=== PATIENT | male | born 1985 | race Caucasian/White ===

== ENCOUNTER 2016-10-29 16:03 | Emergency (ER) | payer SELFPAY ==
[~2016-10-29] VITALS: Ht 172.7 cm; Wt 79.4 kg
--- NOTE | 2016-10-29 16:29 | PHYS DOC ---
Adult General Chief Complaint Chief Complaint: LOWER BACK PAIN OR INJURY HPI HPI Patient is a 30 year old occasional male who presents with a fall from 4 feet landing on his back. He states it happened approximately 90 minutes ago. He jumped up immediately and denied any weakness in his legs. He does complain of low thoracic high lumbar pain and suprapubic discomfort. He denies any neck pain or leg. He denies numbness or tingling in his legs. He states he is able to walk but has pain when he does so. He denies any chest pain or shortness of breath. Patient also complains of a soreness left forearm from injecting meth 3 days ago.He states today he put a needle into it and drained off some pus. He is unsure when his last tetanus shot was. He denies any fevers chills nausea or vomiting. He states this is been there for quite some time. He denies any numbness in his arm or fingers. Review of Systems Review of Systems Constitutional: Denies fever or chills [] Eyes: Denies change in visual acuity, redness, or eye pain [] HENT: Denies nasal congestion or sore throat [] Respiratory: Denies cough or shortness of breath [] Cardiovascular: No additional information not addressed in HPI [] GI: Denies abdominal pain, nausea, vomiting, bloody stools or diarrhea [] : Denies dysuria or hematuria [] Musculoskeletal: Positive for back pain Integument: Denies rash or skin lesions [] Neurologic: Denies headache, focal weakness or sensory changes [] Endocrine: Denies polyuria or polydipsia [] Current Medications Current Medications Current Medications Medications (Trade) Dose Ordered Sig/Han Start Time Stop Time Status Last Admin Dose Admin Diphtheria/ Tetanus/Acell Pertussis (Boostrix) 0.5 ml ONCE ONCE 10/29/16 18:00 10/29/16 18:01 DC 10/29/16 18:41 0.5 ML Fentanyl Citrate (Fentanyl 2ml Vial) 50 mcg PRN Q15MIN PRN 10/29/16 16:45 10/30/16 16:44 10/29/16 17:21 50 MCG Info (Do NOT chart on this entry -- for MONITORING) 1 each PRN DAILY PRN 10/29/16 17:45 10/31/16 17:44 Iohexol (Omnipaque 300 Mg/ml) 75 ml 1X ONCE 10/29/16 18:00 10/29/16 18:01 DC 10/29/16 17:41 75 ML Lidocaine/Sodium Bicarbonate (Buffered Lidocaine 1%) 20 ml 1X ONCE 10/29/16 17:45 10/29/16 17:46 DC 10/29/16 17:56 20 ML Ondansetron HCl (Zofran) 4 mg 1X ONCE 10/29/16 16:45 10/29/16 17:16 DC 10/29/16 17:20 4 MG Allergies Allergies Allergies Coded Allergies Type Severity Reaction Last Updated Verified No Known Drug Allergies 10/29/16 No Physical Exam Physical Exam Constitutional: Well developed, well nourished, no acute distress, non-toxic appearance. [] HENT: Normocephalic, atraumatic, bilateral external ears normal, oropharynx moist, no oral exudates, nose normal. [] Eyes: PERRLA, EOMI, conjunctiva normal, no discharge. [] Neck: Normal range of motion, no tenderness, supple, no stridor. [] Cardiovascular:Heart rate regular rhythm, no murmur [] Lungs & Thorax: Bilateral breath sounds clear to auscultation [] Abdomen: Bowel sounds normal, soft, tender palpation in the suprapubic area without any rebound or guarding, no masses, no pulsatile masses. [] Skin: Warm, dry, no erythema, 1 x 1 cm nodule in the left forearm without any erythema Back: Tender palpation from T 10 through L3, no obvious deformity or ecchymosis no step-offs, nontender the rest of the spine and extremities no CVA tenderness. [] Extremities: No tenderness, no cyanosis, no clubbing, ROM intact, no edema. [] Neurologic: Alert and oriented X 3, normal motor function, normal sensory function, no focal deficits noted. [] Psychologic: Affect normal, judgement normal, mood normal. [] Current Patient Data Vital Signs Vital Signs Date Time Temp Pulse Resp B/P (MAP) Pulse Ox O2 Delivery O2 Flow Rate FiO2 10/29/16 18:54 98 18 152/85 (107) 98 Room Air 10/29/16 16:41 98.5 98.5 Lab Values Laboratory Tests Test 10/29/16 17:00 10/29/16 17:40 White Blood Count 10.8 x10^3/uL (4.0-11.0) Red Blood Count 4.89 x10^6/uL (4.30-5.70) Hemoglobin 14.5 g/dL (13.0-17.5) Hematocrit 42.5 % (39.0-53.0) Mean Corpuscular Volume 87 fL (79-100) Mean Corpuscular Hemoglobin 30 pg (25-35) Mean Corpuscular Hemoglobin Concent 34 g/dL (31-37) Red Cell Distribution Width 13.1 % (11.5-14.5) Platelet Count 239 x10^3/uL (140-400) Neutrophils (%) (Auto) 75 % (31-73) H Lymphocytes (%) (Auto) 17 % (24-48) L Monocytes (%) (Auto) 6 % (0-9) Eosinophils (%) (Auto) 1 % (0-3) Basophils (%) (Auto) 1 % (0-3) Neutrophils # (Auto) 8.1 x10^3uL (1.8-7.7) H Lymphocytes # (Auto) 1.8 x10^3/uL (1.0-4.8) Monocytes # (Auto) 0.7 x10^3/uL (0.0-1.1) Eosinophils # (Auto) 0.1 x10^3/uL (0.0-0.7) Basophils # (Auto) 0.1 x10^3/uL (0.0-0.2) Prothrombin Time 12.7 SEC (11.7-14.0) Prothrombin Time INR 1.0 (0.8-1.1) PTT 26 SEC (24-38) Sodium Level 139 mmol/L (136-145) Potassium Level 4.4 mmol/L (3.5-5.1) Chloride Level 101 mmol/L (98-107) Carbon Dioxide Level 31 mmol/L (21-32) Anion Gap 7 (6-14) Blood Urea Nitrogen 11 mg/dL (8-26) Creatinine 0.9 mg/dL (0.7-1.3) Estimated GFR (Cockcroft-Gault) 100.5 Glucose Level 106 mg/dL (70-99) H Calcium Level 9.6 mg/dL (8.5-10.1) Total Bilirubin 0.2 mg/dL (0.2-1.0) Direct Bilirubin 0.1 mg/dL (0.0-0.2) Aspartate Amino Transferase (AST) 24 U/L (15-37) Alanine Aminotransferase (ALT) 26 U/L (16-63) Alkaline Phosphatase 128 U/L (46-116) H Creatine Kinase 297 U/L (39-308) Creatine Kinase MB (Mass) 1.9 ng/mL (0.0-3.6) Creatine Kinase MB Relative Index 0.6 % (0-4) Total Protein 8.8 g/dL (6.4-8.2) H Albumin 4.1 g/dL (3.4-5.0) Lipase 77 U/L (73-393) Urine Color Yellow Urine Clarity Clear Urine pH 6.0 Urine Specific [place] 1.025 Urine Protein 30 mg/dL (NEG-TRACE) Urine Glucose (UA) Negative mg/dL (NEG) Urine Ketones (Stick) Negative mg/dL (NEG) Urine Blood Negative (NEG) Urine Nitrite Negative (NEG) Urine Bilirubin Negative (NEG) Urine Urobilinogen Dipstick 0.2 mg/dL (0.2 mg/dL) Urine Leukocyte Esterase Negative (NEG) Urine RBC 0 /HPF (0-2) Urine WBC Occ /HPF (0-4) Urine Squamous Epithelial Cells Occ /LPF Urine Bacteria 0 /HPF (0-FEW) Urine Hyaline Casts Occasional /HPF Urine Mucus Mod /LPF Laboratory Tests 10/29/16 17:00 Laboratory Tests 10/29/16 17:00 EKG EKG [] Radiology/Procedures Radiology/Procedures [facility] [address] [place] [address] IMAGING REPORT Signed PATIENT: LAWANDA FLOR ACCOUNT: [id number] : 1985 LOCATION: ER AGE: 30 SEX: M EXAM STATUS: REG ER ORD. PHYSICIAN: ORTIZ CONSTANTINO MD REASON: trauma PROCEDURE: CT CHEST ABD PELVIS W/CONTRAST CT chest, abdomen and pelvis with contrast. CT thoracic spine without contrast. CT lumbar spine without contrast. HISTORY: Trauma, fall, back pain, abdomen pain. TECHNIQUE: Helical CT imaging of the thoracic and lumbar spine without contrast and CT imaging of the chest, abdomen and pelvis with 75 mL Omnipaque 300 intravenous contrast. Thoracic spine findings: Mild T4 compression fracture 10 percent vertebral body height loss without a lucent fracture cleft age-indeterminate. No definite acute fracture. Vertebral alignment intact. Paraspinal tissues unremarkable. Bony canal intact. IMPRESSION: Age-indeterminate mild T4 vertebral compression fracture with 10 percent height loss. Lumbar spine findings: Lumbar vertebral body height and alignment intact. No fracture. No spondylolysis. Bony spinal canal grossly patent. Disc height loss and disc bulge L5-S1. IMPRESSION: No acute osseous injury. Lower lumbar spine disc disease. Chest findings: No mediastinal hematoma. No traumatic thoracic aortic injury. Heart size is normal. Pulmonary vessels and esophagus are unremarkable. No adenopathy. No pneumothorax, pulmonary opacities or pleural effusions. Mild age-indeterminate compression fracture T4 vertebral body. Abdomen findings: Liver, gallbladder, spleen, kidneys, adrenals and pancreas are unremarkable. Vessels unremarkable. No abdominal fluid or adenopathy. GI tract the appendix demonstrates no obstruction or inflammation. Pelvis findings: No pelvic fluid. Bladder, prostate, rectum and bones are unremarkable. IMPRESSION: No acute process in the chest, abdomen and pelvis. Exposure: One or more of the following individualized dose reduction techniques were utilized for this examination: 1. Automated exposure control 2. Adjustment of the mA and/or kV according to patient size 3. Use of iterative reconstruction technique Electronically signed by: Jose Abdi MD (10/29/2016 6:33 PM) [facility] DICTATED and SIGNED BY: JOSE ABDI MD DATE: 10/29/161816 CC: ORTIZ CONSTANTINO MD; NO PCP ~ Impressions: Left forearm wound Back pain from fall Course & Med Decision Making Course & Med Decision Making Pertinent Labs and Imaging studies reviewed. (See chart for details) CT scan shows an old T 4 fracture the patient does not have pain over this area. His wound on his left forearm I did numb it and put a 16 ga needle in it did get a very small amount of pus otherwise it's a local reactive reaction this going on. There was not enough material to send off for culture. Tetanus was updated and he is being discharged home with Bactrium DS for the next 7 days. He can take Percocet and Motrin for pain. Return precautions given. He is agreeable plan being discharged in stable condition this time. [facility] Disclaimer Dragon Disclaimer This electronic medical record was generated, in whole or in part, using a voice recognition dictation system. Departure Departure Impression: Primary Impression: Back pain Disposition: 01 HOME, SELF-CARE Condition: STABLE Referrals: CHICA CHRISTENSEN MD Patient Instructions: Back Pain, Adult Additional Instructions: The CAT scan of your chest abdomen pelvis and of your lumbar and thoracic back did not show any acute abnormalities. Your being discharged home. You can take Percocet as directed for pain. Please don't drive your car while taking this medicine as it can impair judgment and make you sleepy. Can also use Advil 600 mg every 8 hours for the next 3-5 days for pain. Also need to take Bactrim 1 tablet twice a day for the next 7 days for your wound on your left arm. Return ER if you have worsening pain, numbness in your legs, weakness, you developed fevers or you have other concerns. If your wound on your arm doesn't get better over the next week you will need to follow-up with surgery. Please call their office and schedule follow-up appointment. Scripts Sulfamethoxazole/Trimethoprim (BACTRIM 400-80 MG TABLET) 1 Each Tablet 1 TAB PO BID, #14 TAB Prov: ORTIZ CONSTANTINO MD 10/29/16 Oxycodone/Apap 5-325 (PERCOCET 5-325 MG TABLET) 1 Each Tablet 1-2 TAB PO Q6HRS Y for PAIN, #15 TAB Prov: ORTIZ CONSTANTINO MD 10/29/16 Incision and Drainage Indication: abscess Procedure: The patient was positioned appropriately. Local anesthesia was 1 mL of buffered lidocaine. An incision was then made over the apex of the lesion and minimal amount of purulent material was expressed.The patients tetanus status updated as needed. The patient tolerated the procedure well. Complications: none. Problem Qualifiers Primary Impression: Back pain Back pain location: low back pain Chronicity: acute Back pain laterality: bilateral Sciatica presence: without sciatica Qualified Codes: M54.5 - Low back pain ORTIZ CONSTANTINO MD Oct 29, 2016 16:29
[2016-10-29] MEDS ORDERED: ONDANSETRON PF 4 MG/2 ML VIAL. IV ONE (16:45)
[2016-10-29] MEDS ORDERED: fentaNYL PF VIAL 100 MCG/2 ML VIAL IV PRN (16:45)
[2016-10-29 17:13] LABS: BASO # 0.1 x10^3/uL (0.0-0.2); BASO % 1 % (0-3); EOS % 1 % (0-3); HEMATOCRIT 42.5 % (39.0-53.0); HEMOGLOBIN 14.5 g/dL (13.0-17.5); LYMPH # 1.8 x10^3/uL (1.0-4.8); LYMPH % 17 % (24-48); MEAN CORPUSCULAR HEMOGLOBIN 30 pg (25-35); MEAN CORPUSCULAR HGB CONC 34 g/dL (31-37); MEAN CORPUSCULAR VOLUME 87 fL (79-100); MONO % 6 % (0-9); NEUT % 75 % (31-73); PLATELET COUNT 239 x10^3/uL (140-400); RED BLOOD COUNT 4.89 x10^6/uL (4.30-5.70); RED CELL DISTRIBUTION WIDTH 13.1 % (11.5-14.5); WHITE BLOOD COUNT 10.8 x10^3/uL (4.0-11.0)
[2016-10-29 17:22] LABS: PROTHROMBIN TIME PATIENT 12.7 SEC (11.7-14.0)
[2016-10-29 17:27] LABS: CALCIUM 9.6 mg/dL (8.5-10.1); CREATININE 0.9 mg/dL (0.7-1.3); GFR 100.5; POTASSIUM 4.4 mmol/L (3.5-5.1)
[2016-10-29 17:31] LABS: ALBUMIN 4.1 g/dL (3.4-5.0); DIRECT BILIRUBIN 0.1 mg/dL (0.0-0.2); TOTAL BILIRUBIN 0.2 mg/dL (0.2-1.0); TOTAL PROTEIN 8.8 g/dL (6.4-8.2)
[2016-10-29 17:41] LABS: CKMB MASS 1.9 ng/mL (0.0-3.6)
[2016-10-29] MEDS ORDERED: CONTRAST GIVEN MC PRN (17:45)
[2016-10-29] MEDS ORDERED: LIDOCAINE 1% / SOD BICARB 8.4% 20 ML VIAL. IJ ONE (17:45)
[2016-10-29 17:47] LABS: BILIRUBIN,URINE NEGATIVE (NEG); GLUCOSE,URINE NEGATIVE (NEG); NITRITE,URINE NEGATIVE (NEG); PROTEIN,URINE 30 mg/dL (NEG-TRACE); UROBILINOGEN,URINE 0.2 mg/dL (0.2 mg/dL)
[2016-10-29 17:59] LABS: BACTERIA,URINE 0 /HPF (0-FEW); RBC,URINE 0 /HPF (0-2); SQUAMOUS EPITHELIAL CELL,UR OCC /LPF; WBC,URINE OCC /HPF (0-4)
[2016-10-29] MEDS ORDERED: IOHEXOL 300 MG/ML 75 ML VIAL IV ONE (18:00)
[2016-10-29] MEDS ORDERED: DIPHTH,PERTUSS(ACELL),TET TOX 0.5 ML DISP.SYRIN. VAX IM ONE (18:00)
--- NOTE | 2016-10-29 18:36 | RAD ---
CT chest, abdomen and pelvis with contrast. CT thoracic spine without contrast. CT lumbar spine without contrast. HISTORY: Trauma, fall, back pain, abdomen pain. TECHNIQUE: Helical CT imaging of the thoracic and lumbar spine without contrast and CT imaging of the chest, abdomen and pelvis with 75 mL Omnipaque 300 intravenous contrast. Thoracic spine findings: Mild T4 compression fracture 10 percent vertebral body height loss without a lucent fracture cleft age-indeterminate. No definite acute fracture. Vertebral alignment intact. Paraspinal tissues unremarkable. Bony canal intact. IMPRESSION: Age-indeterminate mild T4 vertebral compression fracture with 10 percent height loss. Lumbar spine findings: Lumbar vertebral body height and alignment intact. No fracture. No spondylolysis. Bony spinal canal grossly patent. Disc height loss and disc bulge L5-S1. IMPRESSION: No acute osseous injury. Lower lumbar spine disc disease. Chest findings: No mediastinal hematoma. No traumatic thoracic aortic injury. Heart size is normal. Pulmonary vessels and esophagus are unremarkable. No adenopathy. No pneumothorax, pulmonary opacities or pleural effusions. Mild age-indeterminate compression fracture T4 vertebral body. Abdomen findings: Liver, gallbladder, spleen, kidneys, adrenals and pancreas are unremarkable. Vessels unremarkable. No abdominal fluid or adenopathy. GI tract the appendix demonstrates no obstruction or inflammation. Pelvis findings: No pelvic fluid. Bladder, prostate, rectum and bones are unremarkable. IMPRESSION: No acute process in the chest, abdomen and pelvis. Exposure: One or more of the following individualized dose reduction techniques were utilized for this examination: 1. Automated exposure control 2. Adjustment of the mA and/or kV according to patient size 3. Use of iterative reconstruction technique Electronically signed by: Galo Abdi MD (10/29/2016 6:33 PM) [facility]
[2016-10-29] MEDS ORDERED: OXYC-323 PO (19:22)
[2016-10-29] MEDS ORDERED: SULF1TAB23 PO (19:22)
[2016-10-29] MEDS ORDERED: oxyCODONE/APAP 5/325 1 TAB TABLET PO ONE (19:45)
[2016-10-29 19:55] VITALS: BP 148/81
== END 2016-10-29 19:55 | disposition home or self-care (01) ==
LOC: ER 16:03
DX: L02.212 Cutaneous abscess of back [any part, except buttock and flank] (principal); W17.89XA Other fall from one level to another, initial encounter; Y93.89 Activity, other specified; Y92.89 Other specified places as the place of occurrence of the external cause; Y99.8 Other external cause status
CPT/HCPCS: 10060; 36415; 71260; 74177; 80048; 80076; 81001; 82553; 83690; 85025; 85610; 85730; 90471; 90715; 96374; 96375; 99285; J2405; J3010; Q9967